=== PATIENT | female | born 1945 | race Hispanic/Latino ===

== ENCOUNTER 2017-02-16 14:00 | Emergency (ER) | payer MEDICARE ==
[2017-02-16 14:36] LABS: BASOPHILS % (AUTO) 0.3 % (0.0-5.0); EOSINOPHILS % (AUTO) 6.2 % (0.0-8.0); HEMATOCRIT 40.4 % (36-48); LYMPHOCYTES % (AUTO) 29.1 % (21.0-51.0); MEAN CORPUSCULAR HEMOGLOBIN 28.5 pg (27.0-33.0); MEAN CORPUSCULAR HGB CONC 32.7 g/dL (32.0-36.0); MEAN CORPUSCULAR VOLUME 87.3 fL (79-99); MONOCYTES % (AUTO) 8.9 % (3.0-13.0); NEUTROPHILS % (AUTO) 55.5 % (40.0-77.0); NUCLEATED RED BLOOD CELLS 0.1 % (0.0-0.19); PLATELET COUNT (AUTO) 194 K/uL (130-400); RED BLOOD CELL COUNT(AUTO) 4.63 MIL/uL (4.00-5.50); RED CELL DISTRIBUTION WIDTH 14.2 % (11.0-15.5); WHITE BLOOD COUNT (AUTO) 5.7 K/uL (4.8-10.8)
[2017-02-16 14:48] LABS: CREATININE 1.2 mg/dL (0.5-1.5); POTASSIUM 3.9 mmol/L (3.5-5.1)
[2017-02-16 14:53] LABS: ALBUMIN 3.1 g/dL (3.5-5.0); BILIRUBIN,TOTAL 0.3 mg/dL (0.2-1.0); TOTAL PROTEIN, SERUM 6.6 g/dL (6.0-8.3)
[2017-02-16 15:37] LABS: APPEARANCE,URINE Clear (CLEAR); BILIRUBIN,URINE Negative (NEGATIVE); COLOR,URINE Yellow (YELLOW); GLUCOSE, URINE (UA) >=1000 mg/dL (NEGATIVE); KETONES,URINE Negative (NEGATIVE); LEUKOCYTE ESTERASE ,URINE Negative (NEGATIVE); NITRATE,URINE Negative (NEGATIVE); OCCULT BLOOD,URINE Negative (NEGATIVE); PROTEIN,URINE Negative (NEGATIVE); UROBILINOGEN,URINE 0.2 mg/dL (0.2-1.0)
[2017-02-16 16:26] LABS: BACTERIA,URINE Rare /HPF (None Seen); RBC,URINE None Seen /HPF (0-1); WBC,URINE 0-1 /HPF (0-1)
== END 2017-02-16 16:18 | disposition home or self-care (01) ==
LOC: EDH 14:00
DX: S70.12XA Contusion of left thigh, initial encounter (principal); R60.9 Edema, unspecified; J44.9 Chronic obstructive pulmonary disease, unspecified; E11.9 Type 2 diabetes mellitus without complications; I10 Essential (primary) hypertension; Z86.73 Personal history of transient ischemic attack (TIA), and cerebral infarction without residual deficits; W18.39XA Other fall on same level, initial encounter; Y93.89 Activity, other specified; Y92.89 Other specified places as the place of occurrence of the external cause; Y99.8 Other external cause status
CPT/HCPCS: 36415; 70450; 80053; 81001; 85025; 87804

== ENCOUNTER 2017-03-03 15:39 | Inpatient (IN) | payer MEDICARE ==
[~2017-03-03] VITALS: Ht 162.6 cm; Wt 86.0 kg
[2017-03-03 16:14] LABS: BASOPHILS % (AUTO) 0.9 % (0.0-5.0); EOSINOPHILS % (AUTO) 8.5 % (0.0-8.0); HEMATOCRIT 37.6 % (36-48); LYMPHOCYTES % (AUTO) 30.9 % (21.0-51.0); MEAN CORPUSCULAR HEMOGLOBIN 28.5 pg (27.0-33.0); MEAN CORPUSCULAR HGB CONC 32.9 g/dL (32.0-36.0); MEAN CORPUSCULAR VOLUME 86.5 fL (79-99); MONOCYTES % (AUTO) 7.5 % (3.0-13.0); NEUTROPHILS % (AUTO) 52.2 % (40.0-77.0); NUCLEATED RED BLOOD CELLS 0.1 % (0.0-0.19); PLATELET COUNT (AUTO) 171 K/uL (130-400); RED BLOOD CELL COUNT(AUTO) 4.34 MIL/uL (4.00-5.50); RED CELL DISTRIBUTION WIDTH 14.6 % (11.0-15.5); WHITE BLOOD COUNT (AUTO) 9.2 K/uL (4.8-10.8)
[2017-03-03 16:25] LABS: ALBUMIN 3.4 g/dL (3.5-5.0); BILIRUBIN,TOTAL 0.3 mg/dL (0.2-1.0); TOTAL PROTEIN, SERUM 6.8 g/dL (6.0-8.3)
[2017-03-03 16:29] LABS: POTASSIUM 2.8 mmol/L (3.5-5.1)
[2017-03-03] MEDS ORDERED: POTASSIUM BICARB/CIT AC 25 MEQ TABLET.EFF ONE (16:32)
[2017-03-03] MEDS ORDERED: METHYLPREDNISOLONE SOD SUCC 125MG/2ML VIAL ONE (16:32)
[2017-03-03] MEDS ORDERED: IPRATROPIUM/ALBUTEROL SULFATE 3 ML SOLUTION IH ONE ×2 (16:33→21:18)
[2017-03-03 16:56] LABS: CREATINE KINASE MB 3.2 ng/mL (0.5-3.6)
[2017-03-03] MEDS ORDERED: LEVOFLOXACIN 500 MG TABLET ONE (20:06)
[2017-03-04] MEDS ORDERED: HYDRALAZINE HCL 20 MG/ML VIAL IV PRN (01:00)
[2017-03-04] MEDS ORDERED: ONDANSETRON HCL 4 MG/2 ML VIAL IV PRN (01:00)
[2017-03-04] MEDS ORDERED: LIDOCAINE HCL-MPF 1% 2ML VIAL IVP PRN (01:00)
[2017-03-04] MEDS ORDERED: POTASSIUM CHLORIDE 10% ELIXIR 20 MEQ/15 ML UDCUP PO PRN (01:00)
[2017-03-04] MEDS ORDERED: POTASSIUM CHLORIDE 20MEQ/100ML 100 ML IV PRN (01:00)
[2017-03-04] MEDS ORDERED: POTASSIUM CHLORIDE 20 MEQ ERTAB PO PRN (01:00)
[2017-03-04] MEDS: IPRATROPIUM/ALBUTEROL SULFATE 3 ML SOLUTION IH SCH ×6 (03:00→22:22)
[2017-03-04] MEDS ORDERED: IPRATROPIUM/ALBUTEROL SULFATE 3 ML SOLUTION IH ONE ×3 (06:03→14:37)
[2017-03-04 06:08] LABS: HEMATOCRIT 36.7 % (36-48); MEAN CORPUSCULAR HEMOGLOBIN 28.8 pg (27.0-33.0); MEAN CORPUSCULAR VOLUME 87.2 fL (79-99); PLATELET COUNT (AUTO) 149 K/uL (130-400); RED BLOOD CELL COUNT(AUTO) 4.21 MIL/uL (4.00-5.50); RED CELL DISTRIBUTION WIDTH 14.4 % (11.0-15.5); WHITE BLOOD COUNT (AUTO) 8.5 K/uL (4.8-10.8)
[2017-03-04 06:21] LABS: CREATININE 1.4 mg/dL (0.5-1.5); MAGNESIUM 1.8 mg/dL (1.80-2.40); POTASSIUM 3.6 mmol/L (3.5-5.1)
[2017-03-04 06:37] LABS: CREATINE KINASE MB 1.8 ng/mL (0.5-3.6); TROPONIN I 0.05 ng/mL (0.00-0.06)
[2017-03-04] MEDS ORDERED: GUAIFENESIN SUGAR-FREE 100 MG/5 ML UDCUP ONE (07:14)
[2017-03-04] MEDS: ENOXAPARIN SODIUM 40 MG/0.4 ML SYRINGE SQ SCH (09:00)
[2017-03-04] MEDS: LEVOFLOXACIN 500 MG/D5W 100 ML 100 ML IV SCH (09:00)
[2017-03-04] MEDS: PANTOPRAZOLE SODIUM 40 MG TABLET.DR PO SCH (09:00)
[2017-03-04] MEDS ORDERED: INSULIN HUMULIN R 100 UNIT/ML 3ML ONE ×2 (09:18→12:00)
[2017-03-04] MEDS ORDERED: LEVOFLOXACIN 500 MG/D5W 100 ML 100 ML ONE (09:49)
[2017-03-04] MEDS ORDERED: ENOXAPARIN SODIUM 40 MG/0.4 ML SYRINGE SQ ONE (09:49)
[2017-03-04] MEDS ORDERED: PANTOPRAZOLE SODIUM 40 MG TABLET.DR PO ONE (09:50)
[2017-03-04 11:17] LABS: CREATINE KINASE MB 1.6 ng/mL (0.5-3.6); TROPONIN I 0.05 ng/mL (0.00-0.06)
[2017-03-04] MEDS ORDERED: GUAIFENESIN-DM 200/20 MG 10 ML ONE (14:07)
[2017-03-04 15:45] VITALS: BP 146/72
[2017-03-04] MEDS: GUAIFENESIN-DM 200/20 MG 10 ML PO PRN (17:58)
[2017-03-04 20:00] VITALS: BP 116/93
[2017-03-05] VITALS (8 sets, daily range): BP systolic 119–161; BP diastolic 63–86
[2017-03-05] MEDS ORDERED: ZOLPIDEM TARTRATE 5 MG TAB ONE (00:05)
[2017-03-05] MEDS: ZOLPIDEM TARTRATE 5 MG TAB PO PRN ×2 (00:09→22:45)
[2017-03-05] MEDS: IPRATROPIUM/ALBUTEROL SULFATE 3 ML SOLUTION IH SCH ×6 (02:14→21:58)
[2017-03-05] MEDS: PANTOPRAZOLE SODIUM 40 MG TABLET.DR PO SCH (10:04)
[2017-03-05] MEDS: LEVOFLOXACIN 500 MG/D5W 100 ML 100 ML IV SCH (10:04)
[2017-03-05] MEDS: ACETAMINOPHEN 325 MG TAB PO PRN (10:10)
[2017-03-05] MEDS: ENOXAPARIN SODIUM 40 MG/0.4 ML SYRINGE SQ SCH (10:16)
[2017-03-05] MEDS: METHYLPREDNISOLONE SOD SUCC 40MG/ML 1ML IVP SCH (19:20)
[2017-03-06] MEDS: IPRATROPIUM/ALBUTEROL SULFATE 3 ML SOLUTION IH SCH ×4 (01:54→13:52)
[2017-03-06] MEDS: METHYLPREDNISOLONE SOD SUCC 40MG/ML 1ML IVP SCH ×2 (02:50→10:34)
[2017-03-06 03:50] VITALS: BP 153/85
[2017-03-06 08:48] VITALS: BP 169/72
[2017-03-06] MEDS: GUAIFENESIN-DM 200/20 MG 10 ML PO PRN (10:34)
[2017-03-06] MEDS: LEVOFLOXACIN 500 MG/D5W 100 ML 100 ML IV SCH (10:34)
[2017-03-06] MEDS: PANTOPRAZOLE SODIUM 40 MG TABLET.DR PO SCH (10:34)
[2017-03-06] MEDS: ENOXAPARIN SODIUM 40 MG/0.4 ML SYRINGE SQ SCH (10:35)
[2017-03-06 11:00] VITALS: BP 183/86
[2017-03-06] MEDS ORDERED: LEFL20TA18 PO (12:29)
[2017-03-06] MEDS ORDERED: MELO-108 PO (12:29)
[2017-03-06] MEDS ORDERED: EMPA25TA PO (12:29)
[2017-03-06] MEDS ORDERED: LINA5TAB PO (12:29)
[2017-03-06] MEDS: ACETAMINOPHEN 325 MG TAB PO PRN (13:17)
[2017-03-06 15:40] VITALS: BP 158/125
[2017-03-06] MEDS ORDERED: LEVO500T2 PO (15:44)
[2017-03-06] MEDS ORDERED: PRED20TA3 PO (15:44)
[2017-03-06] MEDS ORDERED: ALBU8.5H8 IH (15:44)
[2017-03-06 17:27] VITALS: BP 166/81
[2017-03-06] MEDS ORDERED: METOPROLOL TARTRATE 25 MG TAB PO SCH (21:00)
[2017-03-07] MEDS ORDERED: MELOXICAM 7.5 MG TABLET PO SCH (09:00)
[2017-03-07] MEDS ORDERED: LINAGLIPTIN 5 MG TABLET PO SCH (09:00)
== END 2017-03-06 18:30 | disposition home or self-care (01) | DRG 202 ==
LOC: EDH 15:39 → EDHIP 17:58 → 3BH 03-04 15:45
PROVIDERS: ADMIT Family Medicine; ATTEND Family Medicine
DX: J20.9 Acute bronchitis, unspecified (principal); J44.0 Chronic obstructive pulmonary disease with (acute) lower respiratory infection; G61.0 Guillain-Barre syndrome; E11.8 Type 2 diabetes mellitus with unspecified complications; I48.91 Unspecified atrial fibrillation; J44.1 Chronic obstructive pulmonary disease with (acute) exacerbation; E87.6 Hypokalemia; Z79.01 Long term (current) use of anticoagulants; Z87.891 Personal history of nicotine dependence; Z83.3 Family history of diabetes mellitus; Z82.49 Family history of ischemic heart disease and other diseases of the circulatory system; Z80.1 Family history of malignant neoplasm of trachea, bronchus and lung
CPT/HCPCS: 36415; 71046; 80048; 80053; 82550; 82553; 82948; 83735; 83874; 84484; 85025; 85027; 87633; 87804; 93005; 93306; 94640; 94664; J0360; J1650; J1815; J1956; J2920; J2930

== ENCOUNTER 2017-06-27 10:47 | Emergency (ER) | payer MEDICARE ==
[~2017-06-27 10:47] MED LIST: ALBU8.5H8 IH; EMPA25TA PO; LEFL20TA18 PO; LEVO500T2 PO; LINA5TAB PO; MELO-108 PO; PRED20TA3 PO
[2017-06-27] MEDS ORDERED: ONDANSETRON HCL MDV 20ML 2 MG/ML VIAL ONE (11:15)
[2017-06-27] MEDS ORDERED: SODIUM CHLORIDE 0.9% 1000ML 1,000 ML IV ONE (11:15)
[2017-06-27] MEDS ORDERED: MORPHINE SULFATE 4 MG/1ML SYG ONE (11:16)
[2017-06-27] MEDS ORDERED: AMPICILLIN SODIUM/SULBACTAM NA 1.5GM VIAL ONE (11:21)
[2017-06-27 11:31] LABS: HEMATOCRIT 34.2 % (36-48); LYMPHOCYTES % (AUTO) 16.3 % (21.0-51.0); MEAN CORPUSCULAR HEMOGLOBIN 27.9 pg (27.0-33.0); MEAN CORPUSCULAR HGB CONC 32.8 g/dL (32.0-36.0); MEAN CORPUSCULAR VOLUME 84.8 fL (79-99); MONOCYTES % (AUTO) 6.5 % (3.0-13.0); NEUTROPHILS % (AUTO) 75.2 % (40.0-77.0); PLATELET COUNT (AUTO) 148 K/uL (130-400); RED BLOOD CELL COUNT(AUTO) 4.04 MIL/uL (4.00-5.50); RED CELL DISTRIBUTION WIDTH 16.9 % (11.0-15.5); WHITE BLOOD COUNT (AUTO) 11.8 K/uL (4.8-10.8)
[2017-06-27 12:02] LABS: CREATININE 1.1 mg/dL (0.5-1.5); POTASSIUM 3.8 mmol/L (3.5-5.1)
[2017-06-27] MEDS ORDERED: ISOVUE-370 50ML VIAL IV ONE (12:18)
[2017-06-27 12:35] LABS: INR 0.98 (0.85-1.15); PARTIAL THROMBOPLASTIN TIME 28.2 SEC (26.3-35.5); PROTHROMBIN TIME 10.3 SEC (9.6-11.6)
== END 2017-06-27 16:47 | disposition short-term general hospital (02) ==
LOC: EDH 10:47
DX: L03.211 Cellulitis of face (principal); J44.9 Chronic obstructive pulmonary disease, unspecified; E11.9 Type 2 diabetes mellitus without complications; I10 Essential (primary) hypertension; I48.91 Unspecified atrial fibrillation; Z86.73 Personal history of transient ischemic attack (TIA), and cerebral infarction without residual deficits; Z87.891 Personal history of nicotine dependence
CPT/HCPCS: 36415; 70491; 71046; 80048; 85025; 85610; 85730; 87040; 93005; 96365; 96366; 96375; 99285; J0295; J2270; J7030; Q9967

== ENCOUNTER → 2017-11-05 | Outpatient (CLI) | payer MEDICARE | END | disposition home or self-care (01) | LOC: RAH 12:27 | PROVIDERS: ATTEND Family Medicine | DX: M79.605 Pain in left leg (principal); M79.604 Pain in right leg | CPT/HCPCS: 93925 ==

== ENCOUNTER 2017-12-04 21:10 | Emergency (ER) | payer MEDICARE ==
[2017-12-04 21:40] LABS: BASOPHILS % (AUTO) 1.1 % (0.0-5.0); EOSINOPHILS % (AUTO) 0.5 % (0.0-8.0); HEMATOCRIT 34.6 % (36-48); LYMPHOCYTES % (AUTO) 30.5 % (21.0-51.0); MEAN CORPUSCULAR HEMOGLOBIN 29.6 pg (27.0-33.0); MEAN CORPUSCULAR HGB CONC 33.6 g/dL (32.0-36.0); MEAN CORPUSCULAR VOLUME 88.3 fL (79-99); MONOCYTES % (AUTO) 6.8 % (3.0-13.0); NEUTROPHILS % (AUTO) 61.1 % (40.0-77.0); PLATELET COUNT (AUTO) 184 K/uL (130-400); RED BLOOD CELL COUNT(AUTO) 3.92 MIL/uL (4.00-5.50); RED CELL DISTRIBUTION WIDTH 14.2 % (11.0-15.5); WHITE BLOOD COUNT (AUTO) 8.9 K/uL (4.8-10.8)
[2017-12-04 21:59] LABS: INR 0.9 (0.85-1.15); PARTIAL THROMBOPLASTIN TIME 24.6 SEC (26.3-35.5); PROTHROMBIN TIME 9.5 SEC (9.6-11.6)
[2017-12-04 22:04] LABS: B-TYPE NATRIURETIC PEPTIDE 59 pg/mL (0-100)
[2017-12-04 22:20] LABS: ALBUMIN 3.1 g/dL (3.5-5.0); BILIRUBIN,TOTAL 0.3 mg/dL (0.2-1.0); CREATININE 1.2 mg/dL (0.5-1.5); TOTAL PROTEIN, SERUM 6.5 g/dL (6.0-8.3)
[2017-12-04 23:10] LABS: AMPHET/METH SCREEN,URINE NEGATIVE (NEGATIVE); BARBITURATE SCREEN, URINE NEGATIVE (NEGATIVE); BENZODIAZEPINES SCREEN,URINE POSITIVE (NEGATIVE); CANNABINOID SCREEN,URINE POSITIVE (NEGATIVE); COCAINE SCREEN,URINE NEGATIVE (NEGATIVE); OPIATE SCREEN,URINE NEGATIVE (NEGATIVE); PHENCYCLIDINE SCREEN,URINE NEGATIVE (NEGATIVE)
[2017-12-05] MEDS ORDERED: DEXAMETHASONE SOD PHOSPHATE 10MG/ML 1ML VIAL ONE (00:44)
[2017-12-05] MEDS ORDERED: FAMOTIDINE 20MG TAB 20 MG TAB ONE (00:45)
[2017-12-05] MEDS ORDERED: DIPHENHYDRAMINE HCL 25 MG CAPSULE ONE (00:45)
== END 2017-12-05 02:13 | disposition home or self-care (01) ==
LOC: EDH 21:10
DX: R55 Syncope and collapse (principal); R53.1 Weakness; F12.10 Cannabis abuse, uncomplicated; I48.91 Unspecified atrial fibrillation; J44.9 Chronic obstructive pulmonary disease, unspecified; E11.9 Type 2 diabetes mellitus without complications; I10 Essential (primary) hypertension; Z86.73 Personal history of transient ischemic attack (TIA), and cerebral infarction without residual deficits
CPT/HCPCS: 36415; 70450; 71045; 80053; 80305; 82550; 82948; 83874; 83880; 84484; 85025; 85610; 85730; 93005; 94761; 99285; J1100; Q0163

== ENCOUNTER → 2017-12-14 | Outpatient (CLI) | payer MEDICARE | END | disposition home or self-care (01) | LOC: RAH 13:49 | PROVIDERS: ATTEND Family Medicine | DX: E04.9 Nontoxic goiter, unspecified (principal) | CPT/HCPCS: 76536 ==

== ENCOUNTER → 2018-08-05 | Outpatient (CLI) | payer MEDICARE | END | disposition home or self-care (01) | LOC: RAH 12:46 | PROVIDERS: ATTEND Family Medicine | DX: I65.23 Occlusion and stenosis of bilateral carotid arteries (principal); E04.2 Nontoxic multinodular goiter; R42 Dizziness and giddiness | CPT/HCPCS: 76536; 93880 ==

== ENCOUNTER → 2018-09-23 | Outpatient (CLI) | payer MEDICARE ==
[~2018-09-23] VITALS: Ht 162.6 cm; Wt 83.9 kg
[~2018-09-23] MED LIST changes: +REGADENOSON 0.4 MG/5 ML PF SYG IVP SCH
== END | disposition home or self-care (01) ==
LOC: SHCH 08:13
PROVIDERS: ATTEND Internal Medicine Cardiovascular Disease
DX: R07.9 Chest pain, unspecified (principal); I48.0 Paroxysmal atrial fibrillation
CPT/HCPCS: 78452; 93017; 96374; A9500 ×2; J2785

== ENCOUNTER → 2018-12-09 | Outpatient (CLI) | payer MEDICARE ==
[~2018-12-09] MED LIST changes: -REGADENOSON 0.4 MG/5 ML PF SYG IVP SCH
== END | disposition home or self-care (01) ==
LOC: RAH 12:58
PROVIDERS: ATTEND Family Medicine
DX: E04.2 Nontoxic multinodular goiter (principal)
CPT/HCPCS: 76536

== ENCOUNTER → 2019-03-24 | Outpatient (CLI) | payer OTHER, MEDICARE | END | disposition home or self-care (01) | LOC: RAH 10:39 | PROVIDERS: ATTEND Family Medicine | DX: K31.84 Gastroparesis (principal) | CPT/HCPCS: 78264; A9541 ==

== ENCOUNTER → 2019-10-03 | Outpatient (CLI) | payer OTHER, MEDICARE | END | disposition home or self-care (01) | LOC: RAH 15:24 | PROVIDERS: ATTEND Family Medicine | DX: M19.011 Primary osteoarthritis, right shoulder (principal) | CPT/HCPCS: 73030 ==

== ENCOUNTER 2019-10-28 10:49 | Emergency (ER) | payer OTHER, MEDICARE ==
[2019-10-28] MEDS ORDERED: ASPIRIN 325 MG TABLET ONE (10:53)
[2019-10-28 11:03] LABS: BASOPHILS % (AUTO) 1.4 % (0.0-5.0); EOSINOPHILS % (AUTO) 1.9 % (0.0-8.0); HEMATOCRIT 38.1 % (36-48); LYMPHOCYTES % (AUTO) 39.9 % (21.0-51.0); MEAN CORPUSCULAR HEMOGLOBIN 29.4 pg (27.0-33.0); MEAN CORPUSCULAR HGB CONC 31.5 g/dL (32.0-36.0); MEAN CORPUSCULAR VOLUME 93.4 fL (79-99); MONOCYTES % (AUTO) 6.1 % (3.0-13.0); NEUTROPHILS % (AUTO) 50.6 % (40.0-77.0); PLATELET COUNT (AUTO) 213 K/uL (130-400); RED BLOOD CELL COUNT(AUTO) 4.08 MIL/uL (4.00-5.50); RED CELL DISTRIBUTION WIDTH 13.2 % (11.0-15.5); WHITE BLOOD COUNT (AUTO) 9.1 K/uL (4.8-10.8)
[2019-10-28 11:12] LABS: INR 0.9 (0.85-1.15); PARTIAL THROMBOPLASTIN TIME 23.3 SEC (26.3-35.5); PROTHROMBIN TIME 9.8 SEC (9.6-11.6)
[2019-10-28 11:25] LABS: ALBUMIN 3.4 g/dL (3.5-5.0); BILIRUBIN,TOTAL 0.3 mg/dL (0.2-1.0); CREATININE 1.7 mg/dL (0.5-1.5); POTASSIUM 4.5 mmol/L (3.5-5.1)
== END 2019-10-28 14:41 | disposition home or self-care (01) ==
LOC: EDH 10:49
DX: R07.89 Other chest pain (principal); E11.9 Type 2 diabetes mellitus without complications; I10 Essential (primary) hypertension; I48.91 Unspecified atrial fibrillation; Z90.49 Acquired absence of other specified parts of digestive tract; Z87.891 Personal history of nicotine dependence
CPT/HCPCS: 36415; 71045; 80053; 82550; 84484; 85025; 85610; 85730; 93005

== ENCOUNTER 2019-12-22 20:20 | Inpatient (IN) | payer OTHER, MEDICARE ==
[~2019-12-22] VITALS: Ht 162.6 cm; Wt 82.6 kg
[2019-12-22] MEDS ORDERED: ONDANSETRON HCL 4 MG/2 ML VIAL ONE (20:35)
[2019-12-22] MEDS ORDERED: ACETAMINOPHEN 325 MG TAB ONE (20:36)
[2019-12-22] MEDS ORDERED: MORPHINE SULFATE 4 MG/1ML SYG ONE (20:36)
[2019-12-22] MEDS ORDERED: SODIUM CHLORIDE 0.9% 1000ML 1,000 ML IV ONE (20:36)
[2019-12-22 20:46] LABS: BASOPHILS % (AUTO) 0.4 % (0.0-5.0); LYMPHOCYTES % (AUTO) 7.2 % (21.0-51.0); MEAN CORPUSCULAR HEMOGLOBIN 29.7 pg (27.0-33.0); MEAN CORPUSCULAR HGB CONC 31.8 g/dL (32.0-36.0); MEAN CORPUSCULAR VOLUME 93.5 fL (79-99); MONOCYTES % (AUTO) 3.9 % (3.0-13.0); PLATELET COUNT (AUTO) 322 K/uL (130-400); RED BLOOD CELL COUNT(AUTO) 4.28 MIL/uL (4.00-5.50); RED CELL DISTRIBUTION WIDTH 13.7 % (11.0-15.5); WHITE BLOOD COUNT (AUTO) 22.7 K/uL (4.8-10.8)
[2019-12-22] MEDS ORDERED: IPRATROPIUM/ALBUTEROL SULFATE 3 ML SOLUTION IH ONE ×2 (20:54→21:18)
[2019-12-22 20:57] LABS: INR 0.88 (0.85-1.15); PARTIAL THROMBOPLASTIN TIME 23.6 SEC (26.3-35.5); PROTHROMBIN TIME 9.6 SEC (9.6-11.6)
[2019-12-22 21:07] LABS: BILIRUBIN,TOTAL 2.3 mg/dL (0.2-1.0); TOTAL PROTEIN, SERUM 7.7 g/dL (6.0-8.3)
[2019-12-22 21:11] LABS: ABG BASE EXCESS 1.4 mmol/L (-2.0-3.0); ABG HCO3 26.3 mmol/L (21.0-28.0); ABG OXYGEN SATURATION 89.1 % (95.0-99.0); ABG PCO2 42 mmHg (32-45)
[2019-12-22] MEDS ORDERED: LEVOFLOXACIN 500 MG/D5W 100 ML 100 ML ONE (21:21)
[2019-12-22] MEDS ORDERED: METHYLPREDNISOLONE SOD SUCC 125MG/2ML VIAL ONE (21:21)
[2019-12-22] MEDS ORDERED: ASPIRIN 325 MG TABLET ONE (21:27)
[2019-12-22 22:02] LABS: RAPID GROUP A STREP NEGATIVE (NEGATIVE)
[2019-12-22 22:41] LABS: CHOLESTEROL 186 mg/dL (<200); HDL CHOLESTEROL 123 mg/dL (35-85); LDL DIRECT 96 mg/dL (0-99); TRIGLYCERIDES 78 mg/dL (30-200)
[2019-12-22] MEDS ORDERED: IOHEXOL-350 75 ML VIAL IV ONE (23:24)
[2019-12-22] MEDS ORDERED: POTASSIUM CHLORIDE 20MEQ/100ML 100 ML IV ONE (23:29)
[2019-12-23 00:35] VITALS: BP 157/60
--- NOTE | 2019-12-23 00:40 | NUR ---
ADMIT RECEIVED PATIENT FROM ER WITH IV POTASSIUM 20MEQS, PATIENT ALERT AND ORIENTED, ADMISSION EDUCATION REVIEWED WITH PATIENT AND PATIENT VERBALIZED UNDERSTANDING.
[2019-12-23] MEDS: METRONIDAZOLE 500MG/100ML BAG 100 ML IVPB SCH ×2 (01:00→08:50)
[2019-12-23] MEDS ORDERED: METRONIDAZOLE 500MG/100ML BAG 100 ML ONE (01:05)
[2019-12-23] MEDS ORDERED: LACTATED RINGERS 1000ML 1,000 ML IV ONE (01:05)
[2019-12-23] MEDS: LACTATED RINGERS 1000ML 1,000 ML IV SCH ×4 (01:08→21:48)
[2019-12-23] MEDS ORDERED: ONDANSETRON HCL 4 MG/2 ML VIAL IVP PRN (01:15)
[2019-12-23] MEDS ORDERED: LIDOCAINE HCL-MPF 1% 2ML VIAL IJ PRN (01:15)
[2019-12-23] MEDS ORDERED: POTASSIUM CHLORIDE 10% ELIXIR 20 MEQ/15 ML UDCUP PO PRN (01:15)
[2019-12-23] MEDS ORDERED: POTASSIUM CHLORIDE 20MEQ/100ML 100 ML IV PRN (01:15)
[2019-12-23] MEDS ORDERED: DEXTROSE 50%-WATER 50 ML DISP.SYRIN IV PRN (01:15)
[2019-12-23] MEDS ORDERED: GLUCAGON 1MG KIT 1 MG ML IM PRN (01:15)
[2019-12-23] MEDS: POTASSIUM CHLORIDE 20 MEQ ERTAB PO PRN ×2 (01:33→03:29)
--- NOTE | 2019-12-23 02:00 | NUR ---
ROUNDS PT RESTING WELL, FAIRLY ASLEEP. NO DISTRESS NOTED. KEPT UNDISTURBED FOR NOW. CALL LIGHT WITHIN REACH. WILL MONITOR PT.
--- NOTE | 2019-12-23 02:00 | NUR ---
ROUNDS PT RESTING WELL, FAIRLY ASLEEP. NO DISTRESS NOTED. KEPT NPO. KEPT NGT TO LIS. WILL CONTINUE TO MONITOR. CALL LIGHT WITHIN REACH. Addendum: 12/23/19 at 0551 by DAYDAY SHEPARD RN RN ERROR ENTRY
[2019-12-23] MEDS: MORPHINE SULFATE 4 MG/1ML SYG IVP PRN ×2 (03:43→13:12)
[2019-12-23 03:58] LABS: HEMATOCRIT 35.4 % (36-48); MEAN CORPUSCULAR HEMOGLOBIN 29.3 pg (27.0-33.0); MEAN CORPUSCULAR HGB CONC 31.9 g/dL (32.0-36.0); MEAN CORPUSCULAR VOLUME 91.7 fL (79-99); RED BLOOD CELL COUNT(AUTO) 3.86 MIL/uL (4.00-5.50); RED CELL DISTRIBUTION WIDTH 13.7 % (11.0-15.5); WHITE BLOOD COUNT (AUTO) 20.3 K/uL (4.8-10.8)
[2019-12-23 04:00] VITALS: BP 128/50
[2019-12-23 04:12] LABS: ALBUMIN 2.5 g/dL (3.5-5.0); BILIRUBIN,TOTAL 3.3 mg/dL (0.2-1.0); CREATININE 1.1 mg/dL (0.5-1.5); MAGNESIUM 1.8 mg/dL (1.80-2.40); PHOSPHORUS 3.4 mg/dL (2.5-4.9); POTASSIUM 3.7 mmol/L (3.5-5.1); TOTAL PROTEIN, SERUM 6.7 g/dL (6.0-8.3)
[2019-12-23] MEDS ORDERED: INSULIN R PO SS1 SQ SCH (06:00)
--- NOTE | 2019-12-23 06:40 | NUR ---
ROUNDS PT RESTING WELL, NO DISTRESS NOTED. KEPT RESTED AND UNDISTURBED. CALL LIGHT WITHIN REACH. KEPT COMFORTABLE. FOR MORE CARE.
[2019-12-23] MEDS: INSULIN HUMULIN R 100 UNIT/ML 3ML SQ SCH ×4 (06:45→20:58)
[2019-12-23 08:00] VITALS: BP 130/60
[2019-12-23] MEDS: PANTOPRAZOLE SODIUM 40 MG TABLET.DR PO SCH (08:50)
[2019-12-23] MEDS ORDERED: PHARMACY COMMUNICATION MISC SCH (11:15)
[2019-12-23] MEDS ORDERED: IPRATROPIUM/ALBUTEROL SULFATE 3 ML SOLUTION IH PRN (11:15)
--- NOTE | 2019-12-23 11:42 | NUR ---
[facility] DC Cigarette And Filter Chief Inspector met with pt discussed dc plans. Pt is independent prior to admission, lives at home alone, son lives close by. Has a provider 28hrs/wk. Denies any other equipments/services. Feels safe to go back home, still drives, son able to assist with transportation and needs as necessary. DC plan to home once stable. CM to continue to follow up. Addendum: 12/23/19 at 1144 by CHRISSIE CARPIO LVN Amended: Links added.
[2019-12-23 11:46] LABS: ALBUMIN 2.6 g/dL (3.5-5.0); BILIRUBIN,DIRECT 3.3 mg/dL (0.0-0.3); BILIRUBIN,TOTAL 3.5 mg/dL (0.2-1.0)
[2019-12-23 12:00] VITALS: BP 136/56
[2019-12-23] MEDS ORDERED: VANCOMYCIN 1.75 GM in SODIUM CHLORIDE 0.9% 250 ML IV SCH (12:00)
[2019-12-23] MEDS ORDERED: MORPHINE SULFATE 4 MG/1ML SYG IV PRN (12:45)
[2019-12-23] MEDS: ZOSYN 3.375GM+NS 50ML 50 ML IV SCH ×2 (13:08→20:50)
[2019-12-23 16:00] VITALS: BP 142/64
--- NOTE | 2019-12-23 16:40 | NUR ---
1600 PATIENT SIGNED IM LETTER, I FAXED IM LETTER TO [phone] AND PLACED IN CHART UNDER CONSENT TAB.
[2019-12-23] MEDS ORDERED: OMEP40CA13 PO (16:54)
[2019-12-23] MEDS ORDERED: POTA-79 PO (16:55)
[2019-12-23] MEDS ORDERED: ALPR2TAB7 PO (16:56)
[2019-12-23] MEDS ORDERED: SUCR1TAB2 PO (16:57)
[2019-12-23] MEDS ORDERED: MAGOX PO (16:57)
[2019-12-23] MEDS ORDERED: TRAM50TA4 PO (16:59)
[2019-12-23] MEDS ORDERED: HYDR-4060 PO (16:59)
[2019-12-23] MEDS ORDERED: LISI10TA7 PO (17:00)
[2019-12-23 17:10] LABS: BASOPHILS % (AUTO) 0.1 % (0.0-5.0); HEMATOCRIT 36.7 % (36-48); LYMPHOCYTES % (AUTO) 5.4 % (21.0-51.0); MEAN CORPUSCULAR HEMOGLOBIN 29.3 pg (27.0-33.0); MEAN CORPUSCULAR HGB CONC 31.6 g/dL (32.0-36.0); MEAN CORPUSCULAR VOLUME 92.7 fL (79-99); MONOCYTES % (AUTO) 2.6 % (3.0-13.0); NEUTROPHILS % (AUTO) 91.5 % (40.0-77.0); PLATELET COUNT (AUTO) 200 K/uL (130-400); RED BLOOD CELL COUNT(AUTO) 3.96 MIL/uL (4.00-5.50); RED CELL DISTRIBUTION WIDTH 13.9 % (11.0-15.5)
[2019-12-23 17:25] LABS: POTASSIUM 3.8 mmol/L (3.5-5.1)
[2019-12-23 17:28] LABS: INR 0.99 (0.85-1.15); PROTHROMBIN TIME 10.7 SEC (9.6-11.6)
[2019-12-23 20:00] VITALS: BP 137/57
[2019-12-23] MEDS: ACETAMINOPHEN 325 MG TAB PO PRN (20:51)
[2019-12-23] MEDS ORDERED: VANCOMYCIN HCL 1 GM VIAL IV SCH (21:00)
[2019-12-23] MEDS: MORPHINE SULFATE 2 MG/ML 1ML SYG IVP PRN (21:54)
[2019-12-24] VITALS: BP 147/76
[2019-12-24] MEDS ORDERED: ALPRAZOLAM 1 MG TAB ONE ×2 (01:43→22:54)
[2019-12-24] MEDS ORDERED: ALPRAZOLAM 1 MG TAB PO ONE ×2 (01:45→23:00)
[2019-12-24] MEDS: LACTATED RINGERS 1000ML 1,000 ML IV SCH ×2 (03:55→09:27)
[2019-12-24 04:00] VITALS: BP 149/78
[2019-12-24] MEDS: ZOSYN 3.375GM+NS 50ML 50 ML IV SCH ×3 (04:59→21:09)
[2019-12-24 05:57] LABS: HEMATOCRIT 37.9 % (36-48); MEAN CORPUSCULAR HEMOGLOBIN 29.3 pg (27.0-33.0); MEAN CORPUSCULAR HGB CONC 31.1 g/dL (32.0-36.0); RED BLOOD CELL COUNT(AUTO) 4.03 MIL/uL (4.00-5.50); RED CELL DISTRIBUTION WIDTH 14.3 % (11.0-15.5); WHITE BLOOD COUNT (AUTO) 29.3 K/uL (4.8-10.8)
[2019-12-24 06:04] LABS: HEMOGLOBIN A1C 7.5 % (4.0-6.0)
[2019-12-24 06:14] LABS: ALANINE AMINOTRANSFERASE 140 U/L (12-78); ALBUMIN 2.5 g/dL (3.5-5.0); ASPARTATE AMINOTRANSFERASE 172 U/L (10-37); BILIRUBIN,DIRECT 1.4 mg/dL (0.0-0.3); BILIRUBIN,TOTAL 1.6 mg/dL (0.2-1.0); CARBON DIOXIDE 32 mmol/L (21-32); CHLORIDE 106 mmol/L (101-111); CREATININE 1.1 mg/dL (0.5-1.5); GLOMERULAR FILTR. RATE CALC 52 mL/min (>60); GLUCOSE,RANDOM 131 mg/dL (70-105); POTASSIUM 3.8 mmol/L (3.5-5.1); SODIUM SERUM 143 mmol/L (136-145); TOTAL PROTEIN, SERUM 6.7 g/dL (6.0-8.3); UREA NITROGEN, BLOOD 17 mg/dL (7-18)
[2019-12-24 06:18] LABS: LIPASE < 50 U/L (114-286)
[2019-12-24] MEDS: INSULIN HUMULIN R 100 UNIT/ML 3ML SQ SCH ×4 (06:40→19:58)
[2019-12-24] MEDS ORDERED: DILTIAZEM HCL 5 MG/ML 5 ML VIAL IVP SCH (07:15)
[2019-12-24] MEDS: MORPHINE SULFATE 2 MG/ML 1ML SYG IVP PRN (07:20)
[2019-12-24] MEDS ORDERED: DILTIAZEM HCL 125 MG/25 ML 125 MG in SODIUM CHLORIDE 0.9% 100 ML IV SCH (07:45)
--- NOTE | 2019-12-24 07:57 | NUR ---
report given to nurse dubon ..patient was transported to [address] [place] [address]
[2019-12-24] MEDS: VANCOMYCIN 1GM+NS 250ML 250 ML IV SCH (09:27)
[2019-12-24] MEDS: PANTOPRAZOLE SODIUM 40 MG TABLET.DR PO SCH (09:27)
[2019-12-24] MEDS ORDERED: FUROSEMIDE 10 MG/ML 2ML VIAL IV SCH (11:30)
[2019-12-24 12:17] VITALS: BP 153/68
[2019-12-24 16:51] VITALS: BP 149/75
[2019-12-24 19:00] VITALS: BP 139/74
[2019-12-24 23:57] VITALS: BP 134/65
[2019-12-25 04:00] VITALS: BP 161/68
[2019-12-25] MEDS: LACTATED RINGERS 1000ML 1,000 ML IV SCH (05:03)
[2019-12-25] MEDS: ZOSYN 3.375GM+NS 50ML 50 ML IV SCH ×3 (05:14→19:53)
[2019-12-25] MEDS: INSULIN HUMULIN R 100 UNIT/ML 3ML SQ SCH ×4 (05:49→19:55)
[2019-12-25] MEDS: PANTOPRAZOLE SODIUM 40 MG TABLET.DR PO SCH (07:11)
--- NOTE | 2019-12-25 08:00 | NUR ---
ASSESSMENT / DR TAYLOR ROUNDS PT IS AWAKE AND ALERT, RESTING IN BED. BREATHING PATTERN IS EVEN AND UNLABORED NO VISIBLE SIGNS OF DISTRESS NOTED. CALL LIGHT WITHIN REACH. HR VIA TELE MONITOR PER [place]ong SR 90-100. DR TAYLOR ROUNDED, ORDERS RECEIVED, PLAN POSSIBLE ERCP THIS AFTERNOON.
[2019-12-25 08:01] VITALS: BP 176/70
[2019-12-25 08:25] LABS: BASOPHILS % (AUTO) 0.5 % (0.0-5.0); HEMATOCRIT 38.1 % (36-48); MEAN CORPUSCULAR HEMOGLOBIN 29.4 pg (27.0-33.0); MEAN CORPUSCULAR VOLUME 94.8 fL (79-99); MONOCYTES % (AUTO) 5.2 % (3.0-13.0); NEUTROPHILS % (AUTO) 83.7 % (40.0-77.0); PLATELET COUNT (AUTO) 289 K/uL (130-400); RED BLOOD CELL COUNT(AUTO) 4.02 MIL/uL (4.00-5.50); RED CELL DISTRIBUTION WIDTH 14.2 % (11.0-15.5)
[2019-12-25 08:52] LABS: ALBUMIN 2.5 g/dL (3.5-5.0); BILIRUBIN,TOTAL 1.9 mg/dL (0.2-1.0); CREATININE 0.9 mg/dL (0.5-1.5); POTASSIUM 3.5 mmol/L (3.5-5.1); TOTAL PROTEIN, SERUM 6.9 g/dL (6.0-8.3)
--- NOTE | 2019-12-25 09:30 | NUR ---
HR VIA Applause SR 90-100s CARDIZEM GTT TURNED OFF, 12 LEAD EKG DONE.
[2019-12-25 09:37] LABS: BILIRUBIN,DIRECT 1.3 mg/dL (0.0-0.3)
--- NOTE | 2019-12-25 09:45 | NUR ---
DR TAYLOR MADE AWARE OF EKG SR AND LAB RESULTS. NO ORDERS RECEIVED AT THIS TIME.
[2019-12-25] MEDS ORDERED: COMPOUND IV REFRIGERATED 1 EACH IVSOLN MISC PRN (10:00)
[2019-12-25] MEDS: VANCOMYCIN 1GM+NS 250ML 250 ML IV SCH (10:05)
[2019-12-25 11:15] VITALS: BP 140/58
[2019-12-25] MEDS ORDERED: FUROSEMIDE 10 MG/ML 4ML VIAL IV SCH (11:40)
[2019-12-25] MEDS ORDERED: FUROSEMIDE 10 MG/ML 4ML VIAL ONE (11:42)
[2019-12-25] MEDS: METOPROLOL TARTRATE 1 MG/ML 5ML VIAL IV SCH ×3 (11:50→22:30)
[2019-12-25] MEDS: METRONIDAZOLE 500MG/100ML BAG 100 ML IVPB SCH ×2 (13:21→22:30)
--- NOTE | 2019-12-25 13:58 | NUR ---
NOTIFIED DR TAYLOR ASKING IF ERCP WILL BE DONE TODAY OR ON A DIFF DATE. ORDERED FOR ERCP WITH ANESTHESIA FOR 11-9-20 7 AM, LOMBARDI DEVELOPER AWARE.
--- NOTE | 2019-12-25 15:15 | NUR ---
KIARA (SISTER) TO CELL PHONE [phone] TO GIVE HER UPDATE ON PLANNED ERCP FOR TOMORROW 7AM.
[2019-12-25 15:38] VITALS: BP 177/88
[2019-12-25] MEDS: MORPHINE SULFATE 2 MG/ML 1ML SYG IVP PRN (16:43)
[2019-12-25 19:30] VITALS: BP 167/70
[2019-12-25] MEDS: VANCOMYCIN 750MG + NS 250 ML IV SCH ×2 (19:53)
[2019-12-25 22:55] LABS: APPEARANCE,URINE Clear (CLEAR); BILIRUBIN,URINE Negative (NEGATIVE); COLOR,URINE Yellow (YELLOW); GLUCOSE, URINE (UA) >=1000 mg/dL (NEGATIVE); KETONES,URINE >=160 mg/dL (NEGATIVE); LEUKOCYTE ESTERASE ,URINE Moderate (NEGATIVE); NITRATE,URINE Negative (NEGATIVE); OCCULT BLOOD,URINE Trace (NEGATIVE); PROTEIN,URINE POS 1+ mg/dL (NEGATIVE); UROBILINOGEN,URINE 0.2 mg/dL (0.2-1.0)
[2019-12-25 23:03] LABS: BACTERIA,URINE None Seen /HPF (None Seen); MUCUS,URINE Rare LPF (None Seen); SQUAMOUS EPITHELIAL CELL,UR Rare /HPF (0-2); WBC,URINE 26-50 /HPF (0-1); YEAST,URINE BUDDING Moderate /HPF (None Seen)
[2019-12-25 23:27] VITALS: BP 169/76
[2019-12-25] MEDS ORDERED: ALPRAZOLAM 1 MG TAB ONE (23:56)
[2019-12-26] VITALS (21 sets, daily range): BP systolic 132–181; BP diastolic 48–98
[2019-12-26] MEDS ORDERED: ALPRAZOLAM 1 MG TAB PO ONE
[2019-12-26] MEDS: INSULIN HUMULIN R 100 UNIT/ML 3ML SQ SCH ×4 (03:36→21:07)
[2019-12-26] MEDS: MORPHINE SULFATE 2 MG/ML 1ML SYG IVP PRN (03:55)
[2019-12-26] MEDS: ZOSYN 3.375GM+NS 50ML 50 ML IV SCH ×3 (03:58→22:11)
[2019-12-26] MEDS: METOPROLOL TARTRATE 1 MG/ML 5ML VIAL IV SCH ×4 (03:58→23:08)
[2019-12-26] MEDS: METRONIDAZOLE 500MG/100ML BAG 100 ML IVPB SCH ×3 (04:57→22:11)
[2019-12-26 06:25] LABS: HEMATOCRIT 35.2 % (36-48); MEAN CORPUSCULAR VOLUME 93.6 fL (79-99); RED BLOOD CELL COUNT(AUTO) 3.76 MIL/uL (4.00-5.50); RED CELL DISTRIBUTION WIDTH 13.6 % (11.0-15.5); WHITE BLOOD COUNT (AUTO) 14.7 K/uL (4.8-10.8)
[2019-12-26 06:38] LABS: ALBUMIN 2.2 g/dL (3.5-5.0); BILIRUBIN,DIRECT 0.8 mg/dL (0.0-0.3); BILIRUBIN,TOTAL 1.6 mg/dL (0.2-1.0); CREATININE 0.9 mg/dL (0.5-1.5); TOTAL PROTEIN, SERUM 6.5 g/dL (6.0-8.3)
[2019-12-26 06:45] LABS: POTASSIUM 2.9 mmol/L (3.5-5.1)
[2019-12-26] MEDS: PANTOPRAZOLE SODIUM 40 MG TABLET.DR PO SCH (07:32)
--- NOTE | 2019-12-26 08:31 | NUR ---
Phi ZULETA PA-C, IN ROOM SPEAKING WITH PT.
[2019-12-26] MEDS: VANCOMYCIN 750MG + NS 250 ML IV SCH ×4 (09:54→20:28)
--- NOTE | 2019-12-26 11:05 | NUR ---
Willi EVANS SENIOR QUALITY CONTROL INSPECTOR, IN ROOM SPEAKING WITH PT. RE:PLAN OF CARE. QUESTIONS ANSWERING BY SENIOR QUALITY CONTROL INSPECTOR.
[2019-12-26] MEDS ORDERED: LIDOCAINE HCL 2% 20ML ONE (11:21)
[2019-12-26] MEDS ORDERED: PROPOFOL 10 MG/ML 20ML VIAL IV ONE (11:21)
[2019-12-26] MEDS: INDOMETHACIN 50 MG SUPP.RECT RC SCH ×2 (12:15→12:20)
--- NOTE | 2019-12-26 14:10 | NUR ---
DR. Adrian HOLT IN ROOM WITH PT.
[2019-12-26] MEDS: POTASSIUM CHLORIDE 20 MEQ ERTAB PO PRN (21:59)
[2019-12-27] MEDS: POTASSIUM CHLORIDE 20 MEQ ERTAB PO PRN ×3 (00:09→18:41)
[2019-12-27] MEDS: ZOSYN 3.375GM+NS 50ML 50 ML IV SCH ×4 (00:34→19:52)
--- NOTE | 2019-12-27 01:23 | NUR ---
PATIENT WITH C/O COUGH AND UNABLE TO SLEEP. I PAGED MAULIK JOHNSON NP VIA ANSWERING SERVICE. WILL AWAIT CALL BACK.
[2019-12-27] MEDS: BENZONATATE 100 MG CAPSULE PO PRN ×2 (03:08→22:27)
[2019-12-27] MEDS: ACETAMINOPHEN 325 MG TAB PO PRN ×2 (03:15→16:05)
[2019-12-27 04:03] VITALS: BP 171/65
[2019-12-27 04:35] LABS: BASOPHILS % (AUTO) 0.6 % (0.0-5.0); EOSINOPHILS % (AUTO) 1.3 % (0.0-8.0); HEMATOCRIT 36.8 % (36-48); LYMPHOCYTES % (AUTO) 22.8 % (21.0-51.0); MEAN CORPUSCULAR HEMOGLOBIN 29.2 pg (27.0-33.0); MEAN CORPUSCULAR HGB CONC 31.5 g/dL (32.0-36.0); MEAN CORPUSCULAR VOLUME 92.7 fL (79-99); MONOCYTES % (AUTO) 6.6 % (3.0-13.0); NEUTROPHILS % (AUTO) 68.2 % (40.0-77.0); PLATELET COUNT (AUTO) 345 K/uL (130-400); RED BLOOD CELL COUNT(AUTO) 3.97 MIL/uL (4.00-5.50); RED CELL DISTRIBUTION WIDTH 13.3 % (11.0-15.5); WHITE BLOOD COUNT (AUTO) 12.7 K/uL (4.8-10.8)
[2019-12-27] MEDS: METOPROLOL TARTRATE 1 MG/ML 5ML VIAL IV SCH (04:42)
[2019-12-27 04:53] LABS: ALBUMIN 2.3 g/dL (3.5-5.0); BILIRUBIN,DIRECT 0.7 mg/dL (0.0-0.3); BILIRUBIN,TOTAL 1.2 mg/dL (0.2-1.0); CREATININE 0.8 mg/dL (0.5-1.5); MAGNESIUM 1.8 mg/dL (1.80-2.40); PHOSPHORUS 2.2 mg/dL (2.5-4.9); POTASSIUM 3.2 mmol/L (3.5-5.1); TOTAL PROTEIN, SERUM 6.8 g/dL (6.0-8.3)
--- NOTE | 2019-12-27 05:04 | NUR ---
PATIENT SITTING ON EDGE OF BED, NO ACUTE DISTRESS NOTED. CALL SILVA IS WITH IN REACH.
[2019-12-27] MEDS: INSULIN HUMULIN R 100 UNIT/ML 3ML SQ SCH ×4 (05:28→20:06)
[2019-12-27] MEDS: METRONIDAZOLE 500MG/100ML BAG 100 ML IVPB SCH (05:55)
--- NOTE | 2019-12-27 07:30 | NUR ---
Phi ZULETA PA-C, IN ROOM ASSESSING/SPEAKING WITH PT.
[2019-12-27] MEDS ORDERED: METOPROLOL TARTRATE 1 MG/ML 5ML VIAL IV PRN (08:00)
[2019-12-27 08:10] VITALS: BP 183/80
[2019-12-27] MEDS ORDERED: LOSARTAN 50 MG TABLET ONE (08:51)
[2019-12-27] MEDS ORDERED: METOPROLOL TARTRATE 25 MG TAB ONE (08:51)
[2019-12-27] MEDS: PANTOPRAZOLE SODIUM 40 MG TABLET.DR PO SCH (08:55)
[2019-12-27] MEDS: VANCOMYCIN 750MG + NS 250 ML IV SCH ×2 (08:56)
[2019-12-27] MEDS: LOSARTAN 50 MG TABLET PO SCH (09:00)
[2019-12-27] MEDS ORDERED: METOPROLOL TARTRATE 25 MG TAB PO SCH ×2 (09:00→13:40)
--- NOTE | 2019-12-27 10:00 | NUR ---
DR. Adrian HOLT IN ROOM SPEAKING WITH PT. RE:PLAN OF CARE. QUESTIONS ANSWERED BY DR. HOLT, PT. VERBALIZED UNDERSTANDING.
[2019-12-27] MEDS: HYDROCODONE/ACETAMINOPHEN 5/325 MG TAB PO PRN (10:22)
[2019-12-27 11:34] VITALS: BP 175/65
--- NOTE | 2019-12-27 16:13 | NUR ---
MET W PATIENT AT [facility] FOR DC PLANNING. ADVISED PATIENT THAT I HAD BEEN INFORMED BY DR. Navarrete YESTERDAY THAT PT WILL REQUIRE IV ABX AFTER DISCHARGE. DISCUSSED PATIENT BEING ON OXYGEN, ETC. PATIENT STATES YES DOES LIVE ALONE BUT IS GOING TO STAY WITH HER PROVIDER UNTIL SE GETS BETTER. DECLINES ANY THOUGHT OF PLACEMENT. STATES IF NEEDS [facility], WILL BE DRIVEN THERE BY HER PROVIDER. RELAYED TO SUAD. AND TO DR. Navarrete. DR. Navarrete STATES NO ORDER FOR PICC TODAY. WILL FOLLOW Addendum: 12/27/19 at 1616 by CHRIS ESPINAL RN CM Amended: Links added.
[2019-12-27 16:18] VITALS: BP 158/65
[2019-12-27 19:52] VITALS: BP 153/71
[2019-12-27] MEDS ORDERED: METOPROLOL TARTRATE 50 MG TAB PO SCH (21:00)
[2019-12-27] MEDS ORDERED: TEMAZEPAM 7.5 MG CAPSULE PO ONE (22:15)
[2019-12-28 00:06] VITALS: BP 161/82
[2019-12-28] MEDS: ACETAMINOPHEN 325 MG TAB PO PRN (01:57)
[2019-12-28 04:23] VITALS: BP 158/73
[2019-12-28] MEDS: ZOSYN 3.375GM+NS 50ML 50 ML IV SCH ×2 (04:46→13:43)
[2019-12-28] MEDS: HYDROCODONE/ACETAMINOPHEN 5/325 MG TAB PO PRN (04:46)
[2019-12-28] MEDS: INSULIN HUMULIN R 100 UNIT/ML 3ML SQ SCH ×3 (05:11→16:47)
[2019-12-28 05:34] LABS: CREATININE 0.9 mg/dL (0.5-1.5); POTASSIUM 3.6 mmol/L (3.5-5.1)
[2019-12-28] MEDS: POTASSIUM CHLORIDE 20 MEQ ERTAB PO PRN ×2 (05:39→09:14)
[2019-12-28 08:42] VITALS: BP 150/62
[2019-12-28] MEDS ORDERED: METOPROLOL TARTRATE 50 MG TAB PO SCH (09:00)
[2019-12-28] MEDS: BENZONATATE 100 MG CAPSULE PO PRN (09:08)
[2019-12-28] MEDS: LOSARTAN 50 MG TABLET PO SCH (09:08)
[2019-12-28] MEDS: PANTOPRAZOLE SODIUM 40 MG TABLET.DR PO SCH (09:08)
[2019-12-28 11:43] VITALS: BP 165/68
[2019-12-28] MEDS ORDERED: LOSA50TA2 PO (15:26)
[2019-12-28] MEDS ORDERED: METO50 PO (15:26)
[2019-12-28] MEDS ORDERED: RIVA20TA PO (15:52)
[2019-12-28 16:17] VITALS: BP 152/81
== END 2019-12-28 18:55 | disposition home or self-care (01) | DRG 871 ==
LOC: EDH 20:20 → OBSVTOIN 22:20 → EDHIP 22:20 → 3BH 23:36 → 4DH 12-24 08:29
PROVIDERS: ADMIT Internal Medicine Critical Care Medicine; ATTEND Internal Medicine Critical Care Medicine
PROC: 0FC98ZZ Extirpation of Matter from Common Bile Duct, Via Natural or Artificial Opening Endoscopic (ICD-10-PCS; principal; 2019-12-26)
DX: A41.59 Other Gram-negative sepsis (principal); I50.31 Acute diastolic (congestive) heart failure; K85.10 Biliary acute pancreatitis without necrosis or infection; K80.30 Calculus of bile duct with cholangitis, unspecified, without obstruction; I13.0 Hypertensive heart and chronic kidney disease with heart failure and stage 1 through stage 4 chronic kidney disease, or unspecified chronic kidney disease; I48.0 Paroxysmal atrial fibrillation; N18.30 Chronic kidney disease, stage 3 unspecified; F41.9 Anxiety disorder, unspecified; J44.9 Chronic obstructive pulmonary disease, unspecified; R74.8 Abnormal levels of other serum enzymes; E11.22 Type 2 diabetes mellitus with diabetic chronic kidney disease; Z20.828 Contact with and (suspected) exposure to other viral communicable diseases; B96.1 Klebsiella pneumoniae [K. pneumoniae] as the cause of diseases classified elsewhere; R53.81 Other malaise; D50.9 Iron deficiency anemia, unspecified; E66.9 Obesity, unspecified; Z68.31 Body mass index [BMI] 31.0-31.9, adult; Z79.01 Long term (current) use of anticoagulants; Z79.84 Long term (current) use of oral hypoglycemic drugs; Z91.14 Patient's other noncompliance with medication regimen; Z79.899 Other long term (current) drug therapy; Z87.891 Personal history of nicotine dependence; Z90.49 Acquired absence of other specified parts of digestive tract; Z83.3 Family history of diabetes mellitus; Z80.1 Family history of malignant neoplasm of trachea, bronchus and lung
CPT/HCPCS: 36415; 36600; 43262; 43264; 71045; 74177; 74181; 74330; 76705; 80048; 80053; 80061; 80076; 80202; 81001; 82150; 82248; 82550; 82803; 82948; 83036; 83605; 83690; 83735; 83880; 84100; 84132; 84484; 85025; 85027; 85610; 85730; 87040; 87077; 87088; 87186; 87426; 87804; 87880; 93005; 93306; 93356; 94640; 94664; 94760; 99291; A4606; C1769; G0378; J1815; J1940; J1956; J2270; J2405; J2543; J2704; J2930; J3370; J3480; J3490; J7030; J7050; J7120; Q9967; U0003

== ENCOUNTER 2022-05-15 14:16 | Emergency (ER) | payer OTHER, MEDICARE ==
[~2022-05-15] VITALS: Ht 162.6 cm; Wt 74.8 kg
[~2022-05-15 14:16] MED LIST changes: -ALBU8.5H8 IH; +ALPR2TAB7 PO; +AUD IH; +BENZ-39 PO; +FLUT1BLS3 IH; +HYDR-4060 PO; +KETO10 PO; -LEFL20TA18 PO; +LEVO250T75 PO; -LEVO500T2 PO; -LINA5TAB PO; +LISI10TA24 PO; +LOSA50TA2 PO; +MAGN400T7 PO; -MELO-108 PO; +METF-446 PO; +METO50 PO; +NITR100C PO; +OMEP40CA21 PO; -PRED20TA3 PO; +RIVA20TA PO; +SEMA14TA2 PO; +SUCR1TAB2 PO; +TRAM50TA4 PO
[2022-05-15 14:42] LABS: BASOPHILS % (AUTO) 0.3 % (0.0-5.0); EOSINOPHILS % (AUTO) 0.1 % (0.0-8.0); HEMATOCRIT 41.5 % (36-48); LYMPHOCYTES % (AUTO) 12.6 % (21.0-51.0); MEAN CORPUSCULAR HGB CONC 31.6 g/dL (32.0-36.0); MEAN CORPUSCULAR VOLUME 88.7 fL (79-99); NEUTROPHILS % (AUTO) 83.5 % (40.0-77.0); PLATELET COUNT (AUTO) 228 K/uL (130-400); RED BLOOD CELL COUNT(AUTO) 4.68 MIL/uL (4.00-5.50); RED CELL DISTRIBUTION WIDTH 15.1 % (11.0-15.5); WHITE BLOOD COUNT (AUTO) 9.4 K/uL (4.8-10.8)
[2022-05-15 14:50] LABS: CREATININE 1.1 mg/dL (0.5-1.5); POTASSIUM 3.6 mmol/L (3.5-5.1)
[2022-05-15 14:55] LABS: ALBUMIN 3.4 g/dL (3.5-5.0)
[2022-05-15] MEDS ORDERED: IPRATROPIUM/ALBUTEROL SULFATE 3 ML SOLUTION IH ONE (16:00)
[2022-05-15] MEDS ORDERED: AUD IH (16:45)
[2022-05-15 16:58] VITALS: BP 185/89
== END 2022-05-15 16:59 | disposition home or self-care (01) ==
LOC: EDH 14:16 → MERGE 14:16 → EDH 16:59
DX: J44.1 Chronic obstructive pulmonary disease with (acute) exacerbation (principal); E11.9 Type 2 diabetes mellitus without complications; E78.00 Pure hypercholesterolemia, unspecified; Z90.49 Acquired absence of other specified parts of digestive tract; Z79.1 Long term (current) use of non-steroidal anti-inflammatories (NSAID); Z79.84 Long term (current) use of oral hypoglycemic drugs; Z79.899 Other long term (current) drug therapy
CPT/HCPCS: 36415; 71045; 80053; 85025; 93005; 94640

== ENCOUNTER → 2022-05-27 | Outpatient (CLI) | payer OTHER, MEDICARE | END | disposition home or self-care (01) | LOC: RAH 10:00 | PROVIDERS: ATTEND Internal Medicine Endocrinology, Diabetes & Metabolism | DX: E04.2 Nontoxic multinodular goiter (principal) | CPT/HCPCS: 76536 ==

== ENCOUNTER → 2023-01-27 | Outpatient (CLI) | payer OTHER, MEDICARE ==
[~2023-01-27] MED LIST changes: +LOSA-418 PO; -LOSA50TA2 PO
[2023-01-27 16:29] LABS: CREATININE 1.2 mg/dL (0.5-1.5); POTASSIUM 4.6 mmol/L (3.5-5.1)
== END | disposition home or self-care (01) ==
LOC: LAB 13:30
PROVIDERS: ATTEND Internal Medicine Cardiovascular Disease
DX: I10 Essential (primary) hypertension (principal)
CPT/HCPCS: 36415; 80048

== ENCOUNTER → 2023-02-02 | Outpatient (CLI) | payer OTHER, MEDICARE | END | disposition home or self-care (01) | LOC: SHCH 10:51 | PROVIDERS: ATTEND Internal Medicine Cardiovascular Disease | DX: I87.2 Venous insufficiency (chronic) (peripheral) (principal); I10 Essential (primary) hypertension; R07.9 Chest pain, unspecified; I48.0 Paroxysmal atrial fibrillation | CPT/HCPCS: 93970 ==

== ENCOUNTER → 2023-02-23 | Outpatient (CLI) | payer OTHER, MEDICARE ==
[~2023-02-23] MED LIST changes: +REGADENOSON 0.4 MG/5 ML PF SYG IVP ONE
== END | disposition home or self-care (01) ==
LOC: SHCH 08:19
PROVIDERS: ATTEND Internal Medicine Cardiovascular Disease
DX: R07.9 Chest pain, unspecified (principal)
CPT/HCPCS: 78452; 96374; 93017; J2785; A9500 ×2

== ENCOUNTER 2023-03-30 10:24 | Emergency (ER) | payer OTHER, MEDICARE ==
[~2023-03-30] VITALS: Ht 160 cm; Wt 83.0 kg
[~2023-03-30 10:24] MED LIST changes: -REGADENOSON 0.4 MG/5 ML PF SYG IVP ONE
[2023-03-30] MEDS: ONDANSETRON 4MG INJ IVP ONE (10:47)
[2023-03-30 11:11] LABS: HEMATOCRIT 41.3 % (36-48); MEAN CORPUSCULAR HEMOGLOBIN 29.2 pg (27.0-33.0); MEAN CORPUSCULAR HGB CONC 31.7 g/dL (32.0-36.0); MEAN CORPUSCULAR VOLUME 92.2 fL (79-99); PLATELET COUNT (AUTO) 165 K/uL (130-400); RED BLOOD CELL COUNT(AUTO) 4.48 MIL/uL (4.00-5.50); RED CELL DISTRIBUTION WIDTH 15.4 % (11.0-15.5); WHITE BLOOD COUNT (AUTO) 12.2 K/uL (4.8-10.8)
[2023-03-30 11:25] LABS: CREATININE 1.2 mg/dL (0.5-1.5); POTASSIUM 4.2 mmol/L (3.5-5.1)
[2023-03-30 11:29] LABS: ALBUMIN 3.8 g/dL (3.5-5.0); BILIRUBIN,TOTAL 0.7 mg/dL (0.2-1.0); TOTAL PROTEIN, SERUM 7.3 g/dL (6.0-8.3)
[2023-03-30 12:33] LABS: LYMPHOCYTES % (MANUAL) 5 % (22-44); MAN.DIFF COMMENT-IMPRESSION MANUAL DIFFERENTIAL; MONOCYTES % (MANUAL) 3 % (2-9); PLATELET MORPHOLOGY COMMENT ADEQUATE; REACTIVE LYMPHOCYTES 3 % (0-0); SEGMENTED NEUTROPHILS % 89 % (40-70); TOTAL CELLS COUNTED 100
[2023-03-30 15:05] LABS: ADD UA MICROSCOPIC YES; APPEARANCE,URINE CLOUDY (CLEAR); BILIRUBIN,URINE NEGATIVE (NEGATIVE); COLOR,URINE YELLOW (YELLOW); GLUCOSE, URINE (UA) >=1000 mg/dL (NEGATIVE); KETONES,URINE 5 mg/dL (NEGATIVE); LEUKOCYTE ESTERASE ,URINE 500 Leu/uL (NEGATIVE); NITRATE,URINE NEGATIVE (NEGATIVE); OCCULT BLOOD,URINE SMALL (NEGATIVE); PROTEIN,URINE 10 mg/dL (NEGATIVE); UROBILINOGEN,URINE 0.2 mg/dL (0.2-1.0)
[2023-03-30 15:08] LABS: BACTERIA,URINE MANY /HPF (None Seen); MUCUS,URINE RARE LPF (None Seen); SQUAMOUS EPITHELIAL CELL,UR RARE /HPF (0-2); UNCLASSIFIED CRYSTAL 8 /HPF (None Seen); WBC CLUMP MANY /HPF (0-1); WBC,URINE TNTC /HPF (0-1)
[2023-03-30 15:20] VITALS: BP 174/62; PULSE 96; RESP 18; O2SAT 95
[2023-03-30] MEDS ORDERED: ONDA22I PO (15:31)
[2023-03-30] MEDS ORDERED: NITR100C PO (15:31)
== END 2023-03-30 16:09 | disposition home or self-care (01) ==
LOC: EDH 10:24
DX: N39.0 Urinary tract infection, site not specified (principal); R11.2 Nausea with vomiting, unspecified; I10 Essential (primary) hypertension; E11.9 Type 2 diabetes mellitus without complications; Z90.49 Acquired absence of other specified parts of digestive tract; Z79.84 Long term (current) use of oral hypoglycemic drugs; Z79.899 Other long term (current) drug therapy
CPT/HCPCS: 99285; 96374; 71045; 84484; 80053; 83690; 85025; 87077; 87088; 87186; 81001; 36415; 93005; J2405

== ENCOUNTER → 2023-06-10 | Outpatient (CLI) | payer OTHER, MEDICARE ==
[~2023-06-10] MED LIST changes: +ONDA22I PO
== END | disposition home or self-care (01) ==
LOC: RAH 11:03
PROVIDERS: ATTEND Internal Medicine Endocrinology, Diabetes & Metabolism
DX: E04.2 Nontoxic multinodular goiter (principal)
CPT/HCPCS: 76536

== ENCOUNTER → 2024-03-07 | Outpatient (CLI) | payer OTHER, MEDICARE ==
[2024-03-07 16:30] LABS: BASOPHILS % (AUTO) 1.3 % (0.0-5.0); EOSINOPHILS % (AUTO) 1.3 % (0.0-8.0); HEMATOCRIT 41.1 % (36-48); IMMATURE GRANULOCYTE ABSOLUTE 0.02 K/uL (0-1); LYMPHOCYTES # (AUTO) 2.6 K/uL (1.0-4.8); LYMPHOCYTES % (AUTO) 34.3 % (21.0-51.0); MEAN CORPUSCULAR HGB CONC 31.1 g/dL (32.0-36.0); MONOCYTES # (AUTO) 0.5 K/uL (0.1-1.0); MONOCYTES % (AUTO) 6.8 % (3.0-13.0); NEUTROPHILS # (AUTO) 4.3 K/uL (1.8-7.7); PLATELET COUNT (AUTO) 181 K/uL (130-400); RED BLOOD CELL COUNT(AUTO) 4.42 MIL/uL (4.00-5.50); RED CELL DISTRIBUTION WIDTH 13.7 % (11.0-15.5); WHITE BLOOD COUNT (AUTO) 7.7 K/uL (4.8-10.8)
[2024-03-07 16:43] LABS: INR 0.97 (0.85-1.15); PROTHROMBIN TIME 10.9 SEC (9.6-11.6)
[2024-03-07 16:44] LABS: PARTIAL THROMBOPLASTIN TIME 27.9 SEC (26.3-35.5)
[2024-03-07 16:57] LABS: CREATININE 1.1 mg/dL (0.5-1.0); POTASSIUM 4.4 mmol/L (3.5-5.1)
== END | disposition home or self-care (01) ==
LOC: LAB 13:48
PROVIDERS: ATTEND Internal Medicine Cardiovascular Disease
DX: Z01.812 Encounter for preprocedural laboratory examination (principal); I87.1 Compression of vein; I87.2 Venous insufficiency (chronic) (peripheral); I73.9 Peripheral vascular disease, unspecified; E11.9 Type 2 diabetes mellitus without complications; I10 Essential (primary) hypertension; E78.5 Hyperlipidemia, unspecified; E66.9 Obesity, unspecified; I48.0 Paroxysmal atrial fibrillation
CPT/HCPCS: 36415; 80048; 85025; 85610; 85730

== ENCOUNTER → 2024-04-15 | Outpatient (CLI) | payer OTHER, MEDICARE ==
[2024-04-15 15:09] LABS: BASOPHILS # (AUTO) 0.11 K/uL (0.00-0.20); BASOPHILS % (AUTO) 1.2 % (0.0-5.0); EOSINOPHILS # (AUTO) 0.14 K/uL (0.00-0.70); EOSINOPHILS % (AUTO) 1.5 % (0.0-8.0); HEMATOCRIT 38.7 % (36-48); IMMATURE GRANULOCYTE ABSOLUTE 0.03 K/uL (0-1); LYMPHOCYTES # (AUTO) 3.2 K/uL (1.0-4.8); LYMPHOCYTES % (AUTO) 34.8 % (21.0-51.0); MEAN CORPUSCULAR HEMOGLOBIN 28.6 pg (27.0-33.0); MEAN CORPUSCULAR VOLUME 89.4 fL (79-99); MONOCYTES # (AUTO) 0.5 K/uL (0.1-1.0); MONOCYTES % (AUTO) 5.7 % (3.0-13.0); NEUTROPHILS # (AUTO) 5.1 K/uL (1.8-7.7); NEUTROPHILS % (AUTO) 56.5 % (40.0-77.0); PLATELET COUNT (AUTO) 252 K/uL (130-400); RED BLOOD CELL COUNT(AUTO) 4.33 MIL/uL (4.00-5.50); RED CELL DISTRIBUTION WIDTH 14.4 % (11.0-15.5); WHITE BLOOD COUNT (AUTO) 9.1 K/uL (4.8-10.8)
[2024-04-15 15:19] LABS: INR 0.97 (0.85-1.15); PROTHROMBIN TIME 10.3 SEC (9.6-11.6)
[2024-04-15 15:41] LABS: CREATININE 1.1 mg/dL (0.5-1.0)
== END | disposition home or self-care (01) ==
LOC: LAB 14:08
PROVIDERS: ATTEND Internal Medicine Cardiovascular Disease
DX: Z01.812 Encounter for preprocedural laboratory examination (principal); I87.1 Compression of vein; I87.2 Venous insufficiency (chronic) (peripheral); Z86.718 Personal history of other venous thrombosis and embolism; I48.0 Paroxysmal atrial fibrillation
CPT/HCPCS: 36415; 80048; 85025; 85610; 85730

== ENCOUNTER 2024-05-10 16:53 | Emergency (ER) | payer OTHER, MEDICARE ==
[~2024-05-10] VITALS: Ht 162.6 cm; Wt 83.9 kg
--- NOTE | 2024-05-10 17:29 | ERN ---
General Chief Complaint: Weakness Stated Complaint: GENERALIZED WEAKNESS Time Seen by MD: 16:56 History of Present Illness Initial Comments 79F BIB EMS from home for generalized weakness and bilateral leg pain. Patient reports that both of her legs feel weak beginning today. She reports discomfort to the entire legs including the upper thigh, knees, and shins. She denies fevers, swelling, or falls. 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 Allergies: Coded Allergies: No Known Allergies (Unverified Allergy, Unknown, 05/16/22) No Known Drug Allergies (Unverified Allergy, Unknown, 03/29/15) Home Meds Active Scripts Nitrofurantoin Macrocrystal (Nitrofurantoin) 100 Mg Capsule, 100 MG PO BID, #14 TAB Prov:FREDERIC GANDHI MD 03/30/23 Ondansetron HCl (Zofran) 4 Mg/2 Ml Inj, 8 MG PO Q8H PRN for NAUSEA/VOMITING, #15 TAB.SL Prov:FREDERIC GANDHI MD 03/30/23 Albuterol Sulfate (Albuterol Sulfate) 2.5 Mg/0.5 Ml Vial.neb, 2.5 MG IH BID for 7 Days, #60 INH Prov:NANDINI STONE MD 05/15/22 Levofloxacin (Levofloxacin) 250 Mg Tablet, 250 MG PO DAILY for 7 Days, #7 TAB 0 Refills Prov:LUDWIN STEPHENS MD 12/17/21 Albuterol Sulfate (Albuterol Sulfate) 2.5 Mg/0.5 Ml Vial.neb, 2.5 MG IH QID PRN for WHEEZING, #1 INH Prov:THUAN MERLOS NP 06/01/21 Nitrofurantoin Macrocrystal (Nitrofurantoin) 100 Mg Capsule, 100 MG PO TID for 5 Days, #20 CAP Prov:THUAN MERLOS NP 06/01/21 Ketorolac Tromethamine (Toradol) 10 Mg Tab, 10 MG PO DAILY for 7 Days, #7 TAB Prov:THUAN MERLOS NP 06/01/21 Fluticasone/Umeclidin/Vilanter (Trelegy Ellipta 100-62.5-25) 1 Each Blst.w.dev, 1 EACH IH DAILY, #1 INH Prov:THUAN MERLOS NP 06/01/21 Benzonatate (Tessalon Perles) 100 Mg Cap, 100 MG PO TID for 7 Days, #21 CAP Prov:THUAN MERLOS HOUSE SHORER 06/01/21 Metoprolol Tartrate (Lopressor 50Mg Tab) 50 Mg Tab, 75 MG PO BID for 30 Days, #30 TAB Prov:ONEAL PRATT AGACNP 12/28/19 Losartan Potassium (Cozaar) 50 Mg Tablet, 50 MG PO DAILY for 30 Days, #30 TAB Prov:ONEAL PRATT AGACNP 12/28/19 Reported Medications Metformin HCl (Metformin HCl) 1,000 Mg Tablet, 1000 MG PO BID, TAB 05/31/21 Empagliflozin (Jardiance) 25 Mg Tablet, 25 MG PO DAILY, TAB 05/31/21 Lisinopril (Lisinopril) 10 Mg Tablet, 10 MG PO DAILY, TAB 03/27/21 Semaglutide (Rybelsus) 14 Mg Tablet, 14 MG PO DAILY, TAB 03/27/21 Rivaroxaban (Xarelto) 20 Mg Tablet, 20 MG PO DAILYBKFST, TAB 03/27/21 Rivaroxaban (Xarelto) 20 Mg Tablet, 20 MG PO DAILY, TAB 12/28/19 Tramadol Hcl (Tramadol HCl) 50 Mg Tablet, 50 MG PO bid PRN for PAIN LEVEL 6 TO 10, TAB 12/23/19 Hydrocodone/Acetaminophen (Hydrocodon-Acetaminophen 5-325) 1 Each Tablet, 1 EACH PO q 6hrs as needed PRN for MODERATE PAIN (4-6), TAB 12/23/19 Sucralfate (Sucralfate) 1 Gm Tablet, 1 GM PO BIDLUNCHDINNER, TAB 12/23/19 Magnesium Oxide (Mag-Ox) 400 Mg Tab, 400 MG PO DAILY, TAB 12/23/19 Alprazolam (Alprazolam) 2 Mg Tablet, 2 MG PO DAILY PRN for anxiety, TAB 12/23/19 Omeprazole (Omeprazole) 40 Mg Capsule.dr, 40 MG PO DAILY, CAP 12/23/19 Past Medical History Past Medical History: High Cholesterol, Heart Disease, Hypertension Medical History Other: ANDREWS BARRE Past Surgical History: Cholecystectomy Social History Social History: Negative, Lives with family Female( History) History: Not Applicable ROS Dictation CONSTITUTIONAL: No chills, no fever, no weakness, no diaphoresis, no malaise. HEAD/FACE: No signs of trauma. EENT: No eye pain, no blurred vision, no tearing, no double vision, no ear pain, no ear discharge, no nose pain, no nasal congestion, no throat pain, no t hroat swelling, no mouth pain. RESPIRATORY: No cough, no orthopnea, no SOB, no stridor, no wheezing. CARDIOVASCULAR: No chest pain, no edema, no palpitations, no syncope. GASTROINTESTINAL/ABDOMINAL: No abdominal pain, no constipation, no diarrhea, n o nausea, no vomiting. GENITOURINARY: No abnormal discharge, no dysuria, no frequent urination, no hematuria. No complaints of pain in the genitals. MUSCULOSKELETAL: Bilateral leg pain and weakness INTEGUMENTARY: No change in color, no change in hair/nails, no dryness, no lesion, no lumps, no rash. NEUROLOGICAL/PSYCH: No anxiety, not depressed, no emotional problem, no heada spike, no numbness, no pre-existing deficit, no history of seizures, no tremors, no weakness. HEMATOLOGIC/LYMPHATIC: Not anemic, no history of blood clots, no apparent bleeding, no bruising, glands not swollen. All Systems Negative, Except as Noted. Physical Exam Physical Exam Dictation VITAL SIGNS: Reviewed. GENERAL APPEARANCE: Alert, oriented x3, no acute distress HEAD AND FACE: Non-traumatic. EYES: PERRL, pink conjunctivas, eyelid no trauma, anterior chamber clear. EARS: Pinnas intact and no signs of trauma or erythema. Ear canals clear and no discharge. TMs no erythema. NOSE: No discharge, no bleeding. OROPHARYNX: Mouth normal, teeth no caries, tongue pink. Pharynx clear, no erythema. Tonsils no exudates, no abscesses noted. Mucous membrane moist. NECK: Supple, non-tender, no thyromegaly, no masses, no JVD, no bruits. BREAST: Deferred. CHEST: No tenderness, no crepitus, no paradoxical movement, no retractions. LUNGS: Clear, well-ventilated, symmetric, no rales, no wheezing, no rhonchi, no stridor, good breath sounds bilaterally. HEART: Regular rate, regular rhythm, no murmur, no gallops. VASCULAR: No peripheral edema. ABDOMEN: Soft, positive bowel sounds, nondistended, no guarding, nontender, no rebound, no masses no hepatomegaly, no splenomegaly, no Cruz's sign, no hernias. RECTAL: Deferred. GENITAL: Deferred. NEUROLOGICAL: Normal speech, gross motor function intact, gross sensory function intact. MUSCULOSKELETAL: Neck nontender, full range of motion, back nontender, full range of motion. EXTREMITIES: Nontender, full range of motion. SKIN: Color pink, dry, no turgor, no rash, no lacerations, no abrasions, no contusions. LYMPHATICS: Deferred. Results Laboratory and Microbiology Lab and Micro Result Laboratory Tests Test 05/10/24 18:17 White Blood Count 6.9 K/uL (4.8-10.8) Red Blood Count 4.05 MIL/uL (4.00-5.50) Hemoglobin 11.7 g/dL (12.0-16.0) L Hematocrit 37.9 % (36-48) Mean Corpuscular Volume 93.6 fL (79-99) Mean Corpuscular Hemoglobin 28.9 pg (27.0-33.0) Mean Corpuscular Hemoglobin Concent 30.9 g/dL (32.0-36.0) L Red Cell Distribution Width 15.0 % (11.0-15.5) Platelet Count 177 K/uL (130-400) Mean Platelet Volume 11.2 fL (7.5-10.5) H Immature Granulocyte % (Auto) 0.3 % (0-1) Neutrophils (%) (Auto) 66.0 % (40.0-77.0) Lymphocytes (%) (Auto) 21.6 % (21.0-51.0) Monocytes (%) (Auto) 8.2 % (3.0-13.0) Eosinophils (%) (Auto) 2.6 % (0.0-8.0) Basophils (%) (Auto) 1.3 % (0.0-5.0) Neutrophils # (Auto) 4.5 K/uL (1.8-7.7) Lymphocytes # (Auto) 1.5 K/uL (1.0-4.8) Monocytes # (Auto) 0.6 K/uL (0.1-1.0) Eosinophils # (Auto) 0.18 K/uL (0.00-0.70) Basophils # (Auto) 0.09 K/uL (0.00-0.20) Absolute Immature Granulocyte (auto 0.02 K/uL (0-1) Nucleated Red Blood Cells 0.0 % (0.0-0.19) Red Blood Cell Morphology See comments Sodium Level 141 mmol/L (136-145) Potassium Level 4.3 mmol/L (3.5-5.1) Chloride Level 105 mmol/L (101-111) Carbon Dioxide Level 34 mmol/L (21-32) H Blood Urea Nitrogen 29 mg/dL (7-18) H Creatinine 1.3 mg/dL (0.5-1.0) H Glomerular Filtration Rate Calc 42 mL/min (>90) Random Glucose 104 mg/dL (70-105) Lactic Acid Level 1.2 mmol/L (0.8-2.5) Total Calcium 9.5 mg/dL (8.5-10.1) Total Creatine Kinase 86 U/L (21-232) # Troponin I High Sensitivity 16.6 ng/L (4-50) C-Reactive Protein, Quantitative 7.80 mg/L (0.5-3.0) H B-Type Natriuretic Peptide 109 pg/mL (0-100) H MDM Cardiac workup for the patient was negative, although her BNP was slightly elevated. CBC was normal. On exam patient was very good dorsalis pedis pulses bilateral lower extremities. Orthostatic testing and the she does not have orthostatic hypotension. Patient was stable for discharge. ED Course Orders Procedure Category Date Status Time Cardiac Panel LAB 05/10/24 Complete 17:02 Cbc With Differential LAB 05/10/24 Complete 17:02 Basic Metabolic Panel LAB 05/10/24 Complete 17:02 B-Type Natriuretic LAB 05/10/24 Complete Peptide 17:02 Urinalysis Profile LAB 05/10/24 In Process 17:02 Crp Quantitative LAB 05/10/24 Complete 17:02 Us Venous Doppler US 05/10/24 Resulted Bilateral 17:02 Creatine Kinase, Total LAB 05/10/24 Complete 17:02 Lactic Acid LAB 05/10/24 Complete 17:02 12 Lead Ekg Tracing- EKG 05/10/24 Complete Technical 17:02 0.9%Nacl 1000ml (Ns PHA 05/10/24 In Process 1000ml) 19:30 Current Medications Medications (Trade) Dose Ordered Sig/Michelet Route PRN Reason Start Time Stop Time Status Last Admin Dose Admin Sodium Chloride 546 ml @ 182 mls/hr ONCE ONCE IV 05/10/24 19:30 05/10/24 22:29 05/10/24 19:39 Vital Signs Date Time Temp Pulse Resp B/P (MAP) Pulse Ox O2 Delivery O2 Flow Rate FiO2 05/10/24 20:35 97.7 81 17 162/62 98 Room Air* 0 21 05/10/24 20:34 97.7 81 17 158/64 98 Room Air* 0 21 05/10/24 20:33 97.7 84 17 162/71 98 Room Air* 0 21 05/10/24 19:31 97.7 76 17 163/88 98 Room Air* 0 21 05/10/24 16:55 97.7 76 17 163/88 98 Room Air 0 DX & DISP Disposition: Discharge Departure Impression: Primary Impression: Weakness Condition: Stable Referrals: PALOMO HARDING MD (PCP) JOANNE GONZALEZ DO May 10, 2024 17:28 TIFFANIE ARAIZA MD May 10, 2024 20:17
--- NOTE | 2024-05-10 17:53 | HMCIMG ---
ULTRASOUND VENOUS DOPPLER, BILATERAL LOWER EXTREMITIES INDICATION: Bilateral lower extremity pain and swelling TECHNIQUE: Routine grayscale and color Doppler ultrasound of the bilateral lower extremity veins performed. COMPARISON: No priors. FINDINGS: The demonstrated veins of the bilateral lower extremity including the common femoral vein, femoral vein, and popliteal vein are associated with normal compressibility, augmentation, and flow. Normal respiratory variation was identified. No evidence for echogenic intraluminal thrombus formation. IMPRESSION: No sonographic evidence for deep venous thrombosis within the bilateral lower extremity veins.
[2024-05-10 18:26] LABS: BASOPHILS # (AUTO) 0.09 K/uL (0.00-0.20); BASOPHILS % (AUTO) 1.3 % (0.0-5.0); EOSINOPHILS # (AUTO) 0.18 K/uL (0.00-0.70); EOSINOPHILS % (AUTO) 2.6 % (0.0-8.0); HEMATOCRIT 37.9 % (36-48); IMMATURE GRANULOCYTE ABSOLUTE 0.02 K/uL (0-1); LYMPHOCYTES # (AUTO) 1.5 K/uL (1.0-4.8); LYMPHOCYTES % (AUTO) 21.6 % (21.0-51.0); MEAN CORPUSCULAR HEMOGLOBIN 28.9 pg (27.0-33.0); MEAN CORPUSCULAR HGB CONC 30.9 g/dL (32.0-36.0); MEAN CORPUSCULAR VOLUME 93.6 fL (79-99); MONOCYTES # (AUTO) 0.6 K/uL (0.1-1.0); MONOCYTES % (AUTO) 8.2 % (3.0-13.0); NEUTROPHILS # (AUTO) 4.5 K/uL (1.8-7.7); PLATELET COUNT (AUTO) 177 K/uL (130-400); RED BLOOD CELL COUNT(AUTO) 4.05 MIL/uL (4.00-5.50); WHITE BLOOD COUNT (AUTO) 6.9 K/uL (4.8-10.8)
[2024-05-10 18:46] LABS: CREATININE 1.3 mg/dL (0.5-1.0); POTASSIUM 4.3 mmol/L (3.5-5.1)
[2024-05-10 19:05] LABS: B-TYPE NATRIURETIC PEPTIDE 109 pg/mL (0-100)
--- NOTE | 2024-05-10 19:29 | EKG ---
[facility] Test Date: 2024-05-10 Test Time: 19:27:44 Pat Name: SUZNANA ISSA Department: ED Room: Gender: F Development Planner: [id number] : 1945 Requested By: JOANNE GONZALEZ Order Number: [id number] Reading MD: César Villa Measurements Intervals [place] Rate: 75 P: 89 RI: 119 QRS: 48 QRSD: 142 T: -26 QT: 393 QTc: 439 Interpretive Statements Sinus rhythm Right bundle branch block Compared to ECG 08/03/2023 01:06:12 No significant changes Electronically Signed On 05-11-2024 07:27:18 CDT by César Villa Please click the below link to view image of tracing.
[2024-05-10] MEDS: 0.9%NACL 1000ML 546 ML IV ONE (19:39)
[2024-05-10 20:35] VITALS: BP 162/62; PULSE 81; RESP 17; TEMP 97.7; O2SAT 98
[2024-05-10 20:58] LABS: APPEARANCE,URINE CLOUDY (CLEAR); BILIRUBIN,URINE NEGATIVE (NEGATIVE); COLOR,URINE LIGHT-YELLOW (YELLOW); GLUCOSE, URINE (UA) >=1000 mg/dL (NEGATIVE); KETONES,URINE NEGATIVE (NEGATIVE); LEUKOCYTE ESTERASE ,URINE 500 Leu/uL (NEGATIVE); NITRATE,URINE 2+ (NEGATIVE); PROTEIN,URINE NEGATIVE (NEGATIVE); UROBILINOGEN,URINE 0.2 mg/dL (0.2-1.0)
[2024-05-10 20:59] LABS: ADD UA MICROSCOPIC YES
[2024-05-10 21:02] LABS: BACTERIA,URINE MOD /HPF (None Seen); MUCUS,URINE RARE LPF (None Seen); WBC,URINE 51-100 /HPF (0-1)
== END 2024-05-10 20:52 | disposition home or self-care (01) ==
LOC: EDH 16:53
DX: R53.1 Weakness (principal); E78.00 Pure hypercholesterolemia, unspecified; I10 Essential (primary) hypertension; M79.662 Pain in left lower leg; M79.661 Pain in right lower leg; Z79.01 Long term (current) use of anticoagulants; Z79.1 Long term (current) use of non-steroidal anti-inflammatories (NSAID); Z79.84 Long term (current) use of oral hypoglycemic drugs; Z79.899 Other long term (current) drug therapy; Z90.49 Acquired absence of other specified parts of digestive tract
CPT/HCPCS: 99284; 93970; 82550; 84484; 80048; 83880; 85025; 87086 ×2; 87186; 83605; 86140; 81001; 36415; 93005; J7030